=== PATIENT | female | born 1990 | race Two or more races ===

== ENCOUNTER 2020-05-11 11:54 | Emergency (ER) | payer OTHER ==
[~2020-05-11] VITALS: Ht 152.4 cm; Wt 54.4 kg
[2020-05-11] MEDS ORDERED: CONCEPT DHA CA1 EACH PO (16:00)
== END 2020-05-11 17:07 | disposition home or self-care (01) ==
LOC: ER 11:54
DX: O20.0 Threatened abortion (principal)

== ENCOUNTER → 2020-05-13 | Emergency (ER) | payer OTHER ==
[~2020-05-13] MED LIST: CONCEPT DHA CA1 EACH PO
== END | disposition left against medical advice (07) ==
LOC: ER 11:26
DX: Z53.21 Procedure and treatment not carried out due to patient leaving prior to being seen by health care provider (principal)